=== PATIENT | male | born 1965 | race Caucasian/White ===

== ENCOUNTER 2021-09-29 12:09 | Emergency (ER) | payer MEDICARE ==
[~2021-09-29] VITALS: Ht 170.2 cm; Wt 65.0 kg
[2021-09-29] MEDS ORDERED: SODIUM CHLORIDE 0.9% 1,000 ML IV ONE ×3 (12:45→15:45)
[2021-09-29] MEDS ORDERED: HYDROCODONE/ACETAMINOPHEN 5/325MG TABLET PO ONE (13:00)
[2021-09-29 14:11] LABS: CHLORIDE 99 mEq/L (98-107)
[2021-09-29 14:13] LABS: BASOPHILS % 0.3 % (0.0-2.0); HEMATOCRIT. 53.8 % (42.0-52.0); HEMOGLOBIN. 17.9 g/dL (14.0-18.0); LYMPHOCYTES % 10.1 % (20.0-50.0); MEAN CORPUSCULAR HEMOGLOBIN 30.2 pg (28.0-32.0); MEAN CORPUSCULAR VOLUME 90.9 fL (80.0-94.0); MEAN PLATELET VOLUME 10.7 fl (7.4-10.4); MONOCYTES % 8.9 % (2.0-8.0); NEUTROPHILS % 80.7 % (40.0-76.0); PLATELET 220 x1000/uL (130-400); RED BLOOD CELL COUNT 5.92 mill/uL (4.7-6.1); RED CELL DISTRIBUTION WIDTH 13.5 % (11.6-14.6)
[2021-09-29 14:19] LABS: BETA HYDROXYBUTYRATE 1.9 mMol/L (0.0-0.3)
[2021-09-29] MEDS ORDERED: INSULIN REGULAR (HUMULIN R) 300UNITS/3ML VIAL IV NR ×2 (14:45→17:45)
[2021-09-29 14:57] LABS: CLARITY URINE CLEAR (CLEAR); COLOR URINE YELLOW (YELLOW); KETONES URINE TRACE (NEGATIVE); LEUKOCYTE ESTERASE URINE NEGATIVE (NEGATIVE); NITRITE URINE NEGATIVE (NEGATIVE); OCCULT BLOOD URINE 1+ (NEGATIVE); PROTEIN URINE 1+ (NEGATIVE); SPECIFIC GRAVITY URINE 1.038 (1.005-1.030); UROBILINOGEN URINE 0.2 E.U./dL (0.2-1.0)
[2021-09-29] MEDS ORDERED: INSULIN REGULAR 100U/100ML PMX 100 ML IV NR (16:00)
[2021-09-29 16:17] LABS: BG BASE EXCESS -0.8 mmol/L (-2.0-2.0); BG CARBOXYHEMOGLOBIN 1.1 % (0.5-1.5); BG DEOXYHEMOGLOBIN 4.1 % (0.0-5.0); BG FRACTION INSPIRED OXYGEN 21; BG HCO3 ACT 25.3 mmol/L (22.0-26.0); BG METHEMOGLOBIN 0.1 % (0.0-1.5); BG OXYGEN SATURATION 95.9 % (92.0-98.5); BG OXYHEMOGLOBIN 94.7 % (94.0-97.0); BG PCO2 46.8 mmHg (35.0-45.0); BG PH 7.351 (7.350-7.450); BG PO2 82.2 mmHg (75.0-100.0); BG SAMPLE SITE RIGHT BRACHIAL; BG TOTAL HEMOGLOBIN 16.1 g/dL (12.0-18.0); BG VENT MODE ROOM AIR
[2021-09-29 16:28] LABS: CHLORIDE 103 mEq/L (98-107)
[2021-09-29 16:33] LABS: PHOSPHORUS 4.5 mg/dL (2.5-4.9)
[2021-09-29] MEDS ORDERED: POTASSIUM CHLORIDE 20MEQ TABLET SR PO NR (17:45)
[2021-09-29 18:29] LABS: CHLORIDE 102 mEq/L (98-107)
[2021-09-29 18:34] LABS: PHOSPHORUS 4.4 mg/dL (2.5-4.9)
[2021-09-29 20:04] LABS: CHLORIDE 103 mEq/L (98-107)
[2021-09-29 20:10] LABS: PHOSPHORUS 4.4 mg/dL (2.5-4.9)
[2021-09-30 00:30] VITALS: BP 134/78
== END 2021-09-30 00:45 | disposition home or self-care (01) ==
LOC: ER 12:19 → EDBEDREQSVC 14:51 → EDBEDREQ 15:27 → EDBEDREQTM 15:27 → ER 09-30 00:45 → CANBEDREQ 09-30 01:46
DX: E11.10 Type 2 diabetes mellitus with ketoacidosis without coma (principal); E86.0 Dehydration; E87.5 Hyperkalemia; R00.0 Tachycardia, unspecified; G89.29 Other chronic pain; M54.59 Other low back pain; I44.4 Left anterior fascicular block; Z79.4 Long term (current) use of insulin
CPT/HCPCS: 96361; 96374; 96376; 99291; J1815; J7030; 36415; 36600; 80048; 80053; 81003; 82010; 82375; 82805; 82962; 83735; 83880; 84100; 84484; 85025; 93005